=== PATIENT | male | born 1980 | race Caucasian/White ===

== ENCOUNTER 2017-05-31 14:15 | Emergency (ER) | payer SELFPAY ==
[~2017-05-31] VITALS: Ht 187.9 cm; Wt 117.9 kg
[~2017-05-31 14:15] MED LIST: ALBUTEROL0.09 MG/A2 IL; AMOXIL500 MG PO; ATIVAN1 MG PO; CIPROFLOXACIN500 MG PO; DARVOCET N 1001 TAB PO; DAYPRO600 M1 PO; FLAGYL500 MG PO; LOMOTIL 0.025 M1 TA1 PO; MEDROL DOSEPAK4 MG PO; MOTRIN600 MG PO; MOTRIN800 MG PO; NAPROSYN500 MG PO; NKHM; ROBAXIN750 MG PO; VICODIN 5/500 505 MG PO; ZOFRAN4 MG PO
[2017-05-31] MEDS ORDERED: Motrin,Rufen800 MG PO (16:18)
[2017-05-31] MEDS ORDERED: CYCLOBENZAPRINE5 M3 PO (16:18)
== END 2017-05-31 16:24 | disposition home or self-care (01) ==
LOC: ED 14:15
DX: M54.16 Radiculopathy, lumbar region (principal); F17.200 Nicotine dependence, unspecified, uncomplicated; Z88.8 Allergy status to other drugs, medicaments and biological substances

== ENCOUNTER 2017-12-16 07:08 | Emergency (ER) | payer SELFPAY ==
[~2017-12-16] VITALS: Ht 187.9 cm; Wt 94.3 kg
[~2017-12-16 07:08] MED LIST changes: +CYCLOBENZAPRINE5 M3 PO; +Motrin,Rufen800 MG PO
[2017-12-16] MEDS ORDERED: Motrin,Rufen800 MG PO (07:21)
[2017-12-16] MEDS ORDERED: AMOXICILLIN875 MG PO (07:21)
== END 2017-12-16 07:35 | disposition home or self-care (01) ==
LOC: ED 07:08
DX: K08.89 Other specified disorders of teeth and supporting structures (principal); Z88.5 Allergy status to narcotic agent; Z88.8 Allergy status to other drugs, medicaments and biological substances

== ENCOUNTER 2019-03-12 16:40 | Emergency (ER) | payer SELFPAY ==
[~2019-03-12 16:40] MED LIST changes: +AMOXICILLIN875 MG PO
[2019-03-12] MEDS ORDERED: MEDROL DOSEPAK4 MG PO (16:54)
[2019-03-12] MEDS ORDERED: Motrin,Rufen800 MG PO (16:55)
== END 2019-03-12 17:28 | disposition home or self-care (01) ==
LOC: ED 16:40
DX: M54.42 Lumbago with sciatica, left side (principal); Z88.8 Allergy status to other drugs, medicaments and biological substances

== ENCOUNTER 2021-08-12 20:31 | Emergency (ER) | payer BC ==
[~2021-08-12] VITALS: Ht 187.9 cm; Wt 104.3 kg
== END 2021-08-13 01:12 | disposition left against medical advice (07) ==
LOC: ED 20:31
DX: S96.912A Strain of unspecified muscle and tendon at ankle and foot level, left foot, initial encounter (principal); S70.12XA Contusion of left thigh, initial encounter; S09.93XA Unspecified injury of face, initial encounter; F17.200 Nicotine dependence, unspecified, uncomplicated; Z88.8 Allergy status to other drugs, medicaments and biological substances; W18.39XA Other fall on same level, initial encounter; Y93.89 Activity, other specified; Y92.89 Other specified places as the place of occurrence of the external cause; Y99.8 Other external cause status

== ENCOUNTER 2022-09-20 20:12 | Emergency (ER) | payer SELFPAY ==
[2022-09-20] MEDS ORDERED: PENICILLIN VK500 MG PO (20:28)
== END 2022-09-20 20:46 | disposition home or self-care (01) ==
LOC: ED 20:12
DX: K02.9 Dental caries, unspecified (principal); K08.89 Other specified disorders of teeth and supporting structures; Z88.8 Allergy status to other drugs, medicaments and biological substances

== ENCOUNTER 2024-02-14 08:02 | Emergency (ER) | payer BC ==
[~2024-02-14] VITALS: Ht 187.9 cm; Wt 104.3 kg
[~2024-02-14 08:02] MED LIST changes: +PENICILLIN VK500 MG PO
[2024-02-14] MEDS ORDERED: TRIAMCINOLONE ACETONIDE 40 MG/ML VIAL IM ONE (09:25)
== END 2024-02-14 09:59 | disposition home or self-care (01) ==
LOC: ED 08:02
DX: M54.42 Lumbago with sciatica, left side (principal); G89.29 Other chronic pain; M79.605 Pain in left leg; Z88.8 Allergy status to other drugs, medicaments and biological substances

== ENCOUNTER 2024-09-12 10:07 | Emergency (ER) | payer BC ==
[~2024-09-12] VITALS: Ht 187.9 cm; Wt 104.3 kg
[2024-09-12] MEDS ORDERED: Acetaminophen/Oxycodone 5 MG/325 MG TABLET PO ONE (10:45)
[2024-09-12] MEDS ORDERED: TRAMADOL HCL50 MG PO (13:16)
== END 2024-09-12 13:28 | disposition home or self-care (01) ==
LOC: ED 10:07
DX: S20.212A Contusion of left front wall of thorax, initial encounter (principal); Z79.899 Other long term (current) drug therapy; Z88.8 Allergy status to other drugs, medicaments and biological substances; X58.XXXA Exposure to other specified factors, initial encounter; Y93.89 Activity, other specified; Y92.89 Other specified places as the place of occurrence of the external cause; Y99.8 Other external cause status